=== PATIENT | female | born 1995 | race Caucasian/White ===

== ENCOUNTER 2018-10-16 15:09 | Inpatient (IN) | payer OTHER ==
[~2018-10-16] VITALS: Ht 157.5 cm; Wt 69.3 kg
[~2018-10-16 15:09] MED LIST: PNV11TAB PO
--- NOTE | 2018-10-16 16:13 | TRIAGE ---
OB Triage Datetime Report Generated by CPN: 10/16/2018 16:13 Datetime: 10/16/2018 16:10 Arrived From: [facility] Movement: Present Contractions: Denies/Absent Rupture of Membranes: Denies Vaginal Discharge: Present Recent Sexual Intercouse: Denies Abdominal Trauma: Not Applicable
[2018-10-16] MEDS ORDERED: LACTATED RINGER'S 1,000 ML IV PRN (16:31)
[2018-10-16 16:35] VITALS: Ht 157.5 cm; Wt 69.3 kg
[2018-10-16] MEDS ORDERED: IBUPROFEN 600 MG TAB PO PRN (17:00)
[2018-10-16] MEDS ORDERED: MISOPROSTOL 200 MCG TAB PR PRN (17:00)
[2018-10-16] MEDS ORDERED: AMPICILLIN 2 GM/NS (PMX) 100 ML IV ONE (17:00)
[2018-10-16] MEDS ORDERED: OXYTOCIN 30 UNITS/LR 500 ML IV PRN (17:00)
[2018-10-16] MEDS ORDERED: CARBOPROST 250 MCG INJ IM PRN (17:00)
[2018-10-16] MEDS ORDERED: LIDOCAINE 1% (MPF) 30 ML INJ INJ PRN (17:00)
[2018-10-16] MEDS ORDERED: METHYLERGONOVINE 0.2 MG INJ IM PRN (17:00)
[2018-10-16] MEDS ORDERED: OXYTOCIN 30 UNITS/LR 500 ML IV SCH ×2 (17:00)
[2018-10-16] MEDS ORDERED: BUTORPHANOL 2 MG INJ IV PRN ×2 (17:00)
[2018-10-16] MEDS: LACTATED RINGER'S 1,000 ML IV SCH (17:29)
[2018-10-16] MEDS: MISOPROSTOL 50 MCG CAPSULE PO SCH ×2 (18:34→22:14)
[2018-10-16] MEDS: AMPICILLIN 1 GM/NS (PMX) 50 ML IV SCH (22:14)
[2018-10-17] MEDS: LACTATED RINGER'S 1,000 ML IV SCH ×3 (00:01→15:14)
[2018-10-17] MEDS: AMPICILLIN 1 GM/NS (PMX) 50 ML IV SCH ×5 (02:14→14:33)
[2018-10-17] MEDS: MISOPROSTOL 50 MCG CAPSULE PO SCH (03:36)
--- NOTE | 2018-10-17 07:59 | HP ---
Date/Time of Note Date/Time of Note DATE: 10/17/18 TIME: 07:58 OB - History Hx of Present : 1 Para: 0 Care: Good Care Ultrasounds: Normal mid trimester US Obstetrical Complications: None Medical Complications: None Past Family/Social History * Past Medical, Surgical, Family and Obstetric Histories reviewed from chart. OB Admission Exam Physical Exam HEENT: WNL Heart: Rhythm Normal Lungs: Clear, Equal Abdomen: WNL Extremities: Normal Reflexes: Normal Cervical Dilatation: 1cm Effacement: 75% Station: -1 Membranes: Ruptured Amniotic Fluid: Clear Heart Rate: 130's Accelerations: Accelerations Present Decelerations: No Decelerations Varibility: Moderate Contractions on Admission: 6-10 Minutes Apart Intensity: Moderate Last 72 hours Lab Results CBC & BMP 10/16/18 16:45 OB Assessment/Plan Reason for admission: induction of labor (for low YAJAIRA per Dr. Khoury) ASHLEIGH CAVANAUGH MD Oct 17, 2018 07:59
[2018-10-17] MEDS ORDERED: OXYTOCIN 30 UNITS/LR 500 ML IV SCH ×2 (08:00→18:13)
[2018-10-17] MEDS: DEXTROSE 5%-LR 1,000 ML IV SCH ×2 (08:51→16:30)
[2018-10-17] MEDS ORDERED: FENTAnyl 2MCG/ML-ROPIV 0.2% 100 ML ONE (08:54)
--- NOTE | 2018-10-17 08:57 | PREAC ---
Date/Time of Note Date/Time of Note DATE: 10/17/18 TIME: 08:56 Anesthesia Eval and Record Evaluation Time Pre-Procedure Interview DATE: 10/17/18 TIME: 08:56 Age 23 Sex female NPO: 8 hrs Preoperative diagnosis iup at term Planned procedure labor epidural Past Medical History Past Medical History: None Surgery & Anesthesia Issues No known issue Meds Anticoagulation: No Beta Vanessa within 24 hr: No Reason Beta Vanessa not given: Pt. not on B-Vanessa Reported Medications [id number] ( 19) 1 Each Tablet, 1 TAB PO DAILY, TAB 10/17/18 Current Medications Lactated Ringer's 1,000 ml @ 125 mls/hr Q8H IV Last administered on 10/17/18at 00:01; Admin Dose 125 MLS/HR; Start 10/16/18 at 16:31 Ampicillin 50 ml @ 100 mls/hr Q4H IV Last administered on 10/17/18at 06:42; Admin Dose 100 MLS/HR; Start 10/16/18 at 21:00 Butorphanol Tartrate (Stadol) 1 mg Q2H PRN IV .PAIN SCALE 1-5; Start 10/16/18 at 17:00 Butorphanol Tartrate (Stadol) 2 mg Q2H PRN IV .PAIN SCALE 6-10; Start 10/16/18 at 17:00 Lidocaine (Xylocaine 1% (Mpf)) 30 ml ONCE PRN INJ .EPISIOTOMY; Start 10/16/18 at 17:00 Oxytocin/Lactated Ringer's 500 ml @ 500 mls/hr ONCE POST IV ; Start 10/16/18 at 17:00 Oxytocin/Lactated Ringer's 500 ml @ 125 mls/hr POST IV ; Start 10/16/18 at 17:00 Ibuprofen (Motrin) 600 mg ONCE PRN PO .PAIN 1-5; Start 10/16/18 at 17:00 Lactated Ringer's 1,000 ml @ 2,000 mls/hr Q30M PRN IV .ANESTHESIA Last ad ministered on 10/17/18at 07:49; Admin Dose 2,000 MLS/HR; Start 10/16/18 at 16:31 Oxytocin/Lactated Ringer's 500 ml @ 0 mls/hr ONCE PRN IV .VAGINAL BLEEDING; Start 10/16/18 at 17:00 Methylergonovine Maleate (Methergine) 0.2 mg ONCE PRN IM .VAGINAL BLEEDING; Start 10/16/18 at 17:00 Carboprost Tromethamine (Hemabate) 250 mcg ONCE PRN IM .VAGINAL BLEEDING; Start 10/16/18 at 17:00 Misoprostol (Cytotec) 1,000 mcg ONCE PRN VA .VAGINAL BLEEDING; Start 10/16/18 at 17:00 Oxytocin/Lactated Ringer's 500 ml @ 0 mls/hr FOR INDUCTION IV Last administered on 10/17/18at 08:01; Admin Dose 1 MLS/HR; Start 10/17/18 at 08:00 Dextrose/Lactated Ringer's 1,000 ml @ 125 mls/hr Q8H IV Last administered on 10/17/18at 08:51; Admin Dose 125 MLS/HR; Start 10/17/18 at 08:30 Meds reviewed: Yes Allergies Coded Allergies: No Known Allergy (Unverified , 10/16/18) Allergies Reviewed: Yes Labs/Studies Labs Reviewed: Reviewed by anesthesiologist Result Diagram: 10/16/18 1645 Laboratory Tests 10/16/18 16:45 Blood Bank Test 10/16/18 16:45 Antibody Screen NEGATIVE Blood Type AB POSITIVE Rh Immune Globulin Candidate NO test: Positive Pre-procedure Exam Airway: Adequate mouth opening, Adequate thyromental dist Mallampati: Mallampati I Teeth: Normal Lung: Normal Heart: Normal ASA Physical Status ASA physical status: 2 Emergency: None Planned Anesthetic Neuraxial: Epidural Planned Pain Management Parenteral pain med Pre-operative Attestations Prior to commencing anesthesia and surgery, the patient was re-evaluated, there was verification of: *The patient's identity *The results of appropriate recent lab work and preoperative vital signs *The above evaluation not changing prior to induction *Anesthetic plan, risk benefits, alternative and complications discussed with patient/family; questions answered; patient/family understands, accepts and wishes to proceed. PRISCILLA RUELAS Oct 17, 2018 08:57
[2018-10-17] MEDS ORDERED: DIPHENHYDRAMINE 50 MG INJ IV PRN (09:00)
[2018-10-17] MEDS ORDERED: NALOXONE (0.4 MG/ML) INJ IV PRN (09:00)
[2018-10-17] MEDS ORDERED: ONDANSETRON 4 MG INJ IV PRN (09:00)
[2018-10-17] MEDS: FENTAnyl 2MCG/ML-ROPIV 0.2% 100 ML BAG EPI SCH ×2 (09:38→14:51)
[2018-10-17] MEDS ORDERED: MINERAL OIL LIGHT 10 ML VIAL TOP ONE (13:00)
--- NOTE | 2018-10-17 16:12 | LDN ---
Date/Time of Note Date/Time of Note DATE: 10/17/18 TIME: 16:12 Delivery Summary Placenta Delivered: Spontaneously Meconium: none Episiotomy: No Perineal laceration: 1 Anesthesia type: Epidural Estimated blood loss: 300 Sponge & Needle done & correct: Yes All needle counts correct: Yes Any foreign bodies felt in the: No ASHLEIGH CAVANAUGH MD Oct 17, 2018 16:12
[2018-10-17] MEDS: LACTATED RINGER'S 1,000 ML IV* SCH (18:13)
[2018-10-17 18:30] VITALS: BP 126/71; PULSE 68; RESP 20
[2018-10-17] MEDS ORDERED: ACETAMINOPHEN 325 MG TAB PO PRN (18:30)
[2018-10-17] MEDS ORDERED: DIPHENHYDRAMINE 25 MG CAP PO PRN (18:30)
[2018-10-17] MEDS ORDERED: METHYLERGONOVINE 0.2 MG INJ IM PRN (18:30)
[2018-10-17] MEDS ORDERED: MISOPROSTOL 200 MCG TAB PR PRN (18:30)
[2018-10-17] MEDS ORDERED: HYDROCODONE/APAP (5/325) TAB PO PRN (18:30)
[2018-10-17] MEDS ORDERED: MAGNESIUM HYDROXIDE 30ML CUP PO PRN (18:30)
[2018-10-17] MEDS ORDERED: LANOLIN HPA 1 PKT TOP PRN (18:30)
[2018-10-17] MEDS: IBUPROFEN 800 MG TAB PO SCH (18:30)
[2018-10-17] MEDS ORDERED: ZOLPIDEM 5 MG TAB PO PRN (18:30)
[2018-10-17] MEDS ORDERED: OXYTOCIN 30 UNITS/LR 500 ML IV PRN (18:30)
[2018-10-17] MEDS ORDERED: CARBOPROST 250 MCG INJ IM PRN (18:30)
[2018-10-17] MEDS: WITCH HAZEL/GLYCERIN PAD PR PRN (18:47)
[2018-10-17] MEDS: BENZOCAINE 20% 56 ML SPRAY TOP PRN (18:48)
[2018-10-17 19:30] VITALS: BP 110/68; PULSE 62; RESP 20
[2018-10-18] MEDS: IBUPROFEN 800 MG TAB PO SCH ×5 (00:26→23:51)
[2018-10-18] MEDS: LACTATED RINGER'S 1,000 ML IV* SCH ×3 (02:13→18:13)
[2018-10-18 04:00] VITALS: BP 106/62; PULSE 65; RESP 18
[2018-10-18 08:30] VITALS: BP 104/64; PULSE 74; RESP 18
[2018-10-18] MEDS: SENNA/DOCUSATE NA (8.6MG/50MG) TAB PO PRN ×2 (11:54→21:42)
--- NOTE | 2018-10-18 12:27 | PAC ---
Date/Time of Note Date/Time of Note DATE: 10/18/18 TIME: 12:27 Post-Anesthesia Notes Post-Anesthesia Note Last documented vital signs Vital Signs Date Temp Pulse Resp B/P (MAP) Pulse Ox O2 O2 Flow FiO2 Time Delivery Rate 10/18/18 98.3 74 18 104/64 Room Air 08:30 (77) Activity: WNL Respiratory function: WNL Cardiovascular function: WNL Mental status: Baseline Pain reasonably controlled: Yes Hydration appropriate: Yes Nausea/Vomiting absent: Yes PRISCILLA RUELAS Oct 18, 2018 12:27
[2018-10-18 16:33] VITALS: BP 100/59; PULSE 75; RESP 18
[2018-10-18 19:35] VITALS: BP 110/70; PULSE 72; RESP 18
--- NOTE | 2018-10-18 20:06 | PN ---
Date/Time of Note Date/Time of Note DATE: 10/18/18 TIME: 20:05 OB Subjective Subjective Subjective PPD# 1 Patient is doing well. She denies nausea, vomiting, shortness of breath, chest pain, headache. She has been ambulating without difficulty, tolerating regular diet. Pain is well controlled on current medications OB Objective Objective Objective VS - Last 72 Hours, by Label Date Temp Pulse Resp B/P (MAP) Pulse Ox O2 O2 Flow FiO2 Time Delivery Rate 10/18/18 98.3 75 18 100/59 Room Air 16:33 (73) 10/18/18 98.3 74 18 104/64 Room Air 08:30 (77) 10/18/18 98.0 65 18 106/62 Room Air 04:00 (77) 10/17/18 98.1 62 20 110/68 Room Air 19:30 (82) 10/17/18 99.8 68 20 126/71 Room Air 18:30 (89) General: AAO X 3, comfortable, NAD, appropriate mood and affect. ABD: +BS. Soft, non-tender. Uterus 2 cm below umbilicus Flank: No CVA tenderness (B/L) LE: Mild edema. No clubbing, cyanosis, thigh or calf tenderness (B/L). Homans 'sign is negative OB Assessment/Plan Other plan: 23 years old 1 para 1-0-0-1 s/p normal vaginal delivery. PPD#1 - AF, VSS - Baby is doing well, at bed side. She is bonding well - Contraception methods with R/B/A/FR discussed - Continue care - Discharge home tomorrow - Rx and instruction given - Follow up in 2 and 6 weeks at clinic SANTOS ZAPATA Oct 18, 2018 20:06
[2018-10-18] MEDS: BENZOCAINE 20% 56 ML SPRAY TOP PRN (21:42)
[2018-10-18] MEDS: WITCH HAZEL/GLYCERIN PAD PR PRN (21:43)
[2018-10-19] MEDS: LACTATED RINGER'S 1,000 ML IV* SCH ×2 (02:13→10:13)
[2018-10-19 03:47] VITALS: BP 104/57; PULSE 62; RESP 18
[2018-10-19] MEDS: IBUPROFEN 800 MG TAB PO SCH ×2 (05:33→12:46)
[2018-10-19 08:30] VITALS: BP 109/65; PULSE 62; RESP 20
--- NOTE | 2018-10-19 08:39 | DS ---
Date/Time of Note Date/Time of Note DATE: 10/19/18 TIME: 08:38 Discharge Summary Admission/Discharge Info Admit Date/Time Oct 16, 2018 at 16:15 Discharge Date/Time Discharge Diagnosis term preg Patient Condition: Stable Hospital Course unremarkable Home Meds Reported Medications [id number] ( 19) 1 Each Tablet, 1 TAB PO DAILY, TAB 10/17/18 Primary Care Provider Care Physician No Primary Pending Labs Laboratory Tests Test 10/19/18 04:28 White Blood Count 13.1 10^3/ul (4.8-10.8) Red Blood Count 3.66 10^6/ul (4.20-5.40) Hemoglobin 10.5 g/dl (12.0-16.0) Hematocrit 32.7 % (37.0-47.0) Mean Corpuscular Volume 89.3 fl (82.0-101.0) Mean Corpuscular Hemoglobin 28.7 pg (29.0-33.0) Mean Corpuscular Hemoglobin Concent 32.1 g/dl (32.0-37.0) Red Cell Distribution Width 13.4 % (11.5-14.5) Platelet Count 128 10^3/UL (140-415) Mean Platelet Volume 12.3 fl (7.4-10.4) Immature Granulocytes % 0.800 % (0.001-0.429) Neutrophils % 68.3 % (39.0-77.0) Lymphocytes % 20.3 % (15.0-51.0) Monocytes % 9.3 % (0.0-11.0) Eosinophils % 1.1 % (0.0-7.0) Basophils % 0.2 % (0.0-2.0) Nucleated Red Blood Cells % 0.0 /100WBC (0.0-0.0) Immature Granulocytes # 0.100 10^3/ul (0.0-0.031) Neutrophils # 8.9 10^3/ul (1.6-7.5) Lymphocytes # 2.7 10^3/ul (0.8-2.9) Monocytes # 1.2 10^3/ul (0.3-0.9) Eosinophils # 0.1 10^3/ul (0.0-0.5) Basophils # 0.0 10^3/ul (0.0-0.1) Nucleated Red Blood Cells # 0.0 10^3/ul (0.0-0.0) ASHLEIGH CAVANAUGH MD Oct 19, 2018 08:39
[2018-10-19] MEDS ORDERED: BISACODYL 10 MG SUPP PR ONE (09:00)
[2018-10-19] MEDS ORDERED: VARICELLA VACCINE LIVE/PF 1,350 UNIT/0.5 ML ML SC* ONE (09:00)
[2018-10-19] MEDS ORDERED: DIPHTH/TET/ACEL PERTUSS (ADULT) 0.5 ML VIAL IM* ONE (09:00)
[2018-10-19] MEDS ORDERED: MEASLES,MUMPS,RUBELLA VACCINE INJ SC* ONE (09:00)
[2018-10-19] MEDS: SENNA/DOCUSATE NA (8.6MG/50MG) TAB PO PRN (10:09)
[2018-10-19 15:58] VITALS: BP 111/70; RESP 18
== END 2018-10-19 18:15 | disposition home or self-care (01) | DRG 807 ==
LOC: OBT 15:09 → L-D 15:10 → OBT 16:13 → L-D 16:15 → MS1 10-17 18:52
PROVIDERS: ADMIT Obstetrics & Gynecology; ATTEND Obstetrics & Gynecology
PROC: 10E0XZZ Delivery of Products of Conception, External Approach (ICD-10-PCS; principal; 2018-10-17)
DX: O41.03X0 Oligohydramnios, third trimester, not applicable or unspecified (principal); O70.0 First degree perineal laceration during delivery; Z37.0 Single live birth; Z3A.40 40 weeks gestation of pregnancy
CPT/HCPCS: 62322; 76815; 82962; 85025; 85610; 85730; 86592; 86850; 86900; 86901; 87340; 90715; 90716; J0290; J2210; J2590; J3010; J7120; J7121